=== PATIENT | female | born 1975 | race Hispanic/Latino ===

== ENCOUNTER 2016-07-07 15:08 | Observation (INO) | payer OTHER ==
[2016-07-07 15:31] VITALS: BP 120/75; PULSE 96; RESP 18; TEMP 97.6; O2SAT 94
[2016-07-07 16:34] LABS: BASO # 0.1 K/uL (0.0-0.2); BASO % 1.2 % (0.0-2.0); EOS # 0.2 K/uL (0.0-0.7); EOS % 2.6 % (0.0-4.0); HEMATOCRIT 34.2 % (34.0-47.0); LYMPH # 2.4 K/uL (1.0-4.3); LYMPH % 33.4 % (20.0-40.0); MEAN CELL VOLUME 99.9 fl (81.0-99.0); MEAN CORPUSCULAR HEMOGLOBIN 32.4 pg (27.0-31.0); MEAN CORPUSCULAR HGB CONC 32.5 g/dL (33.0-37.0); MEAN PLATELET VOLUME 8.6 fl (7.2-11.7); MONO # 0.4 K/uL (0.0-0.8); MONO % 5.7 % (0.0-10.0); NEUT % 57.1 % (50.0-75.0); WHITE BLOOD COUNT 7.1 K/uL (4.8-10.8)
[2016-07-07 16:38] LABS: ALKALINE PHOSPHATASE 85 U/L (38-126); ALT/SGPT 61 U/L (9-52); AST/SGOT 60 U/L (14-36); BILIRUBIN,TOTAL < 0.1 mg/dl (0.2-1.3); BLOOD UREA NITROGEN 9 mg/dl (7-17); CALCIUM 8.5 mg/dL (8.4-10.2); CARBON DIOXIDE 27 mmol/L (22-30); CHLORIDE 107 mmol/L (98-107); GFR AFRICAN-AMERICAN > 60; GLUCOSE,RANDOM 87 mg/dL (65-105); POTASSIUM 3.7 MMOL/L (3.6-5.0); SODIUM 141 mmol/l (132-148)
[2016-07-07 16:40] LABS: ALB/GLOB RATIO 0.9 (1.0-2.1)
[2016-07-07 17:02] LABS: ALCOHOL SERUM 302 mg/dl (0-10)
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
[2016-07-07] MEDS ORDERED: Sodium Chloride 0.9% 1,000 ML IV STA (17:22)
--- NOTE | 2016-07-07 19:18 | ED PDOC ---
- Laboratory Results Result Diagrams: 07/07/16 16:18 07/07/16 16:18 - ECG O2 Sat by Pulse Oximetry: 94 (RA) Medical Decision Making Medical Decision Makin:00 Pt signed out to me by Pam Flower MD pending clinical sobriety and crisis evaluation. 2330: Patient denies SI or need for crisis eval. Patient is concerned she may not get into custodial should she not be discharged at this time. Crisis eval cancelled and patient will f/u as needed. Dx: alcohol induced mood disorder Improved Scribe Attestation: Documented by Anthony Watts acting as a scribe for Ceferino Burgos MD. Provider Scribe Attestation: All medical record entries made by the Scribe were at my direction and personally dictated by me. I have reviewed the chart and agree that the record accurately reflects my personal performance of the history, physical exam, medical decision making, and the department course for this patient. I have also personally directed, reviewed, and agree with the discharge instructions and disposition. Disposition - Clinical Impression Clinical Impression: Alcohol-induced mood disorder - POA Present On Arrival: None - Disposition Disposition: Routine/Home Disposition Time: 16:45 Condition: STABLE
== END 2016-07-07 23:37 | disposition home or self-care (01) ==
LOC: H.ER 15:08 → H.EROBSV 16:45
PROVIDERS: ADMIT Emergency Medicine; ATTEND Emergency Medicine
DX: F10.14 Alcohol abuse with alcohol-induced mood disorder (principal); F10.129 Alcohol abuse with intoxication, unspecified; Y90.8 Blood alcohol level of 240 mg/100 ml or more; F41.8 Other specified anxiety disorders; F43.10 Post-traumatic stress disorder, unspecified; Z88.3 Allergy status to other anti-infective agents